=== PATIENT | male | born 2000 | race Caucasian/White ===

== ENCOUNTER 2023-11-18 11:26 | Emergency (ER) | payer BC ==
[~2023-11-18] VITALS: Ht 175.3 cm; Wt 86.2 kg
[2023-11-18] MEDS ORDERED: TRUVADA 100 MG1 EACH (12:05)
[2023-11-18] MEDS ORDERED: CEFTRIAXONE SODIUM 1,000 MG VIAL IM STA (13:22)
[2023-11-18] MEDS ORDERED: AZITHROMYCIN 500 MG TABLET PO STA (13:23)
[2023-11-18] MEDS ORDERED: KETOROLAC TROMETHAMINE 60 MG VIAL IM STA (13:25)
[2023-11-18] MEDS ORDERED: DEXAMETHASONE SODIUM PHOSPHATE 4 MG/ML VIAL IM STA (13:25)
== END 2023-11-18 13:37 | disposition home or self-care (01) ==
LOC: ER 11:28
DX: K62.89 Other specified diseases of anus and rectum (principal)